=== PATIENT | female | born 1990 | race Caucasian/White ===

== ENCOUNTER → 2019-02-18 | Outpatient (CLI) | payer OTHER ==
[~2019-02-18] MED LIST: Zofran Odt8 MG SL
== END | disposition home or self-care (01) ==
LOC: LAB SHORT 18:40 → LAB 18:40
PROVIDERS: Nurse Practitioner
DX: Z01.419 Encounter for gynecological examination (general) (routine) without abnormal findings (principal)
CPT/HCPCS: G0145

== ENCOUNTER → 2020-07-19 | Outpatient (CLI) | payer OTHER ==
[2020-07-19 15:03] LABS: Source, Urine Clean Catch
[2020-07-19 17:27] LABS: Appearance, Urine Clear (Clear); Bilirubin, Urine Neg (Neg); Blood, Urine Neg (Neg); Color, Urine Yellow (P-Yellow); Glucose Qualitative, Urine Neg (Neg); Ketones, Urine Neg (Neg); Leukocyte Esterase, Urine Neg (Neg); Nitrite, Urine Neg (Neg); Protein, Urine Neg (Neg); Urobilinogen, Urine NORM (Normal)
[2020-07-19 17:32] LABS: Specific Gravity, Urine 1.005 (1.003-1.022)
== END | disposition home or self-care (01) ==
LOC: LAB 11:02 → LAB SHORT 11:02
PROVIDERS: Obstetrics & Gynecology
DX: N39.0 Urinary tract infection, site not specified (principal)
CPT/HCPCS: 81003

== ENCOUNTER → 2020-09-13 | Outpatient (CLI) | payer OTHER ==
[~2020-09-13] MED LIST changes: +OMEP20ER PO; +PRENATAL TABLE1 EAC2 PO; +Percocet 5-3251 EACH PO
[2020-09-13 16:30] LABS: Source, Urine Clean Catch
[2020-09-13 18:06] LABS: Appearance, Urine Hazy (Clear); Bilirubin, Urine Neg (Neg); Blood, Urine Neg (Neg); Color, Urine Yellow (P-Yellow); Glucose Qualitative, Urine Neg (Neg); Ketones, Urine Neg (Neg); Leukocyte Esterase, Urine 1+ (Neg); Nitrite, Urine Pos (Neg); Protein, Urine Neg (Neg); Specific Gravity, Urine 1.025 (1.003-1.022); Urobilinogen, Urine NORM (Normal); pH, Urine 6.5 (5.0-8.0)
[2020-09-13 18:36] LABS: Bacteria Many /hpf; Red Blood Cells, Urine 0-2 /hpf (0-2); Squamous Epithelial Cells Few /hpf (Few)
== END | disposition home or self-care (01) ==
LOC: LAB SHORT 16:27 → LAB 16:27
PROVIDERS: Obstetrics & Gynecology
DX: Z34.82 Encounter for supervision of other normal pregnancy, second trimester (principal)
CPT/HCPCS: 81001; 87077; 87086; 87186

== ENCOUNTER 2021-01-19 08:55 | Inpatient (IN) | payer OTHER ==
[~2021-01-19] VITALS: Ht 157.5 cm; Wt 78.6 kg
[~2021-01-19 08:55] MED LIST changes: -OMEP20ER PO; -PRENATAL TABLE1 EAC2 PO; -Percocet 5-3251 EACH PO
[2021-01-19 10:04] LABS: Source, Urine Clean Catch
[2021-01-19 10:09] LABS: Appearance, Urine Clear (Clear); Bilirubin, Urine Neg (Neg); Blood, Urine Neg (Neg); Color, Urine Yellow (P-Yellow); Glucose Qualitative, Urine Neg (Neg); Ketones, Urine Neg (Neg); Leukocyte Esterase, Urine 1+ (Neg); Nitrite, Urine Neg (Neg); Protein, Urine Neg (Neg); Urobilinogen, Urine NORM (Normal)
[2021-01-19 10:17] LABS: BASOPHILS ABSOLUTE AUTO 0.02 K/mm3 (0.00-0.23); BASOPHILS PERCENT AUTO 0 % (0-2); EOSINOPHILS PERCENT AUTO 0 % (0-6); Hematocrit 35.8 % (33.0-51.0); Hemoglobin 11.7 g/dL (11.5-16.0); IMMATURE GRAN ABSOLUTE AUTO 0.05 K/mm3 (0.00-0.10); IMMATURE GRAN PERCENT AUTO 0 % (0-1); LYMPHOCYTES ABSOLUTE AUTO 1.17 K/mm3 (0.84-5.20); LYMPHOCYTES PERCENT AUTO 8 % (21-46); MONOCYTES ABSOLUTE AUTO 0.89 K/mm3 (0.16-1.47); MONOCYTES PERCENT AUTO 6 % (4-13); Mean Corpuscular HGB 28.7 pg (26.0-34.0); Mean Corpuscular HGB Conc 32.7 g/dL (31.5-36.5); Mean Corpuscular Volume 88 fL (80-100); Mean Platelet Volume 10.8 fL (9.1-12.4); NEUTROPHILS ABSOLUTE AUTO 12.07 K/mm3 (1.96-9.15); NEUTROPHILS PERCENT AUTO 85 % (41-73); Platelet Count 225 K/mm3 (150-400); RDW Coefficient Variation 13.9 % (11.7-14.2); RDW Standard Deviation 44.8 fL (35.1-46.3); Red Blood Cell Count 4.07 M/mm3 (3.80-5.20)
[2021-01-19 10:21] LABS: Bacteria Rare /hpf; Red Blood Cells, Urine 0-2 /hpf (0-2); Squamous Epithelial Cells Few /hpf (Few)
[2021-01-19 10:28] LABS: Alanine Aminotransfer (ALT/SGP 15 U/L (12-78); Albumin, Blood 2.5 g/dL (3.4-5.0); Albumin/Globulin Ratio 0.5 (0.8-1.8); Alk Phos 170 U/L (50-136); Anion Gap 5 mmol/L (6-16); Aspartate Aminotrans (AST/SGOT 16 U/L (12-37); Bilirubin, Total 0.8 mg/dL (0.1-1.0); Blood Urea Nitrogen 5 mg/dL (8-24); Bun/Creatinine Ratio 7.7 (12.0-20.0); CO2, Blood 25 mmol/L (21-32); Calcium, Blood 9.4 mg/dL (8.5-10.1); Chloride, Blood 104 mmol/L (98-108); Creatinine, Blood 0.65 mg/dL (0.40-1.00); Globulin, Blood 5.1 g/dL (2.2-4.0); Glomerular Filtration Rate >60 (60-); Glucose, Blood 76 mg/dL (70-99); Sodium, Blood 134 mmol/L (136-145); Total Protein, Blood 7.6 g/dL (6.4-8.2)
[2021-01-19] MEDS ORDERED: PRENATAL TABLE1 EAC2 PO (13:26)
[2021-01-19] MEDS ORDERED: OMEP20ER PO (13:26)
[2021-01-19 13:37] LABS: Influenza A, PCR NEGATIVE (NEGATIVE); Influenza B, PCR NEGATIVE (NEGATIVE); Resp Syncytial Virus, PCR NEGATIVE (NEGATIVE); SARS-Cov-2 (COVID-19) PCR, MMC NEGATIVE (NEGATIVE)
--- NOTE | 2021-01-19 15:18 | NUR ---
CAME IN C/O RIGHT SIDE ABDOMINAL PAIN AND RIGHT FLANK PAIN. STATES THE PAIN HAS BEEN OFF AND ON X 2 WEEKS WORSE THIS MORNING. TEMP 99 ON ARRIVAL. FHE 170 WITH MINIMAL VARIABILITY AND TACHYCARDIA. NO IMPROVEMENT WITH IVF OR POSITION CHANGE. 1130 REPORT TO TO Mariella OLVERA RNC
[2021-01-19 22:00] LABS: BASOPHILS ABSOLUTE AUTO 0.02 K/mm3 (0.00-0.23); BASOPHILS PERCENT AUTO 0 % (0-2); EOSINOPHILS PERCENT AUTO 0 % (0-6); Hematocrit 29.4 % (33.0-51.0); Hemoglobin 9.8 g/dL (11.5-16.0); IMMATURE GRAN ABSOLUTE AUTO 0.07 K/mm3 (0.00-0.10); IMMATURE GRAN PERCENT AUTO 1 % (0-1); LYMPHOCYTES ABSOLUTE AUTO 0.73 K/mm3 (0.84-5.20); LYMPHOCYTES PERCENT AUTO 5 % (21-46); MONOCYTES ABSOLUTE AUTO 0.89 K/mm3 (0.16-1.47); MONOCYTES PERCENT AUTO 6 % (4-13); Mean Corpuscular HGB 29.5 pg (26.0-34.0); Mean Corpuscular HGB Conc 33.3 g/dL (31.5-36.5); Mean Corpuscular Volume 89 fL (80-100); Mean Platelet Volume 10.4 fL (9.1-12.4); NEUTROPHILS ABSOLUTE AUTO 13.04 K/mm3 (1.96-9.15); NEUTROPHILS PERCENT AUTO 89 % (41-73); Platelet Count 194 K/mm3 (150-400); RDW Coefficient Variation 14.1 % (11.7-14.2); RDW Standard Deviation 45.6 fL (35.1-46.3); Red Blood Cell Count 3.32 M/mm3 (3.80-5.20); White Blood Cell Count 14.75 K/mm3 (4.00-11.30)
[2021-01-20 02:13] LABS: PCO2 Cord - Venous 43.9 mmHg (40-50); PO2 Cord - Venous 28.1 mmHg (28-32); pH Umbilical Cord - Venous 7.37 (7.26-7.35)
--- NOTE | 2021-01-20 02:47 | NUR ---
01/20/21 0247 Zelda Car 0200 VIABLE BABY BOY. CORD BLOO GIVEN TO CHANTE.LT1 UMBILICAL CORD SEGMENT GIVEN TO RCD.CMB.
[2021-01-20 03:26] LABS: Hematocrit 23.2 % (33.0-51.0); Hemoglobin 7.6 g/dL (11.5-16.0); Mean Corpuscular HGB 29.3 pg (26.0-34.0); Mean Corpuscular HGB Conc 32.8 g/dL (31.5-36.5); Mean Corpuscular Volume 90 fL (80-100); Mean Platelet Volume 10.6 fL (9.1-12.4); Platelet Count 207 K/mm3 (150-400); RDW Coefficient Variation 14.2 % (11.7-14.2); RDW Standard Deviation 46.5 fL (35.1-46.3); Red Blood Cell Count 2.59 M/mm3 (3.80-5.20); White Blood Cell Count 16.57 K/mm3 (4.00-11.30)
--- NOTE | 2021-01-20 03:29 | NUR ---
PT ARRIVED TO PACU AFTER HAVING PCS UNDER GENRAL ANTHESIA AFTER FAILED SPINAL X2, HUBBARD DRAINING CLEAR YELLOW URINE,OPERATIONS PLANNER REPORTS BLADDER IRRAGATION WITH 250CC OF SALINE. PT REPORTING PAIN 8/10. PT ON RA LUNGS CLEAR, EKG RYTHM IS SINUS TACH. EBL 1500 PER ANTHESIA AND PITOCIN INFUSING AT PP RATE.
[2021-01-20 03:45] LABS: BAND PERCENT MAN 11 % (0-8); BASOPHILS PERCENT MAN 0 % (0-2); EOSINOPHILS PERCENT MAN 0 % (0-6); LYMPHOCYTES ABSOLUTE MAN 0.49 K/mm3 (0.84-5.20); LYMPHOCYTES PERCENT MAN 3 % (21-46); MONOCYTES ABSOLUTE MAN 0.82 K/mm3 (0.16-1.47); MONOCYTES PERCENT MAN 5 % (4-13); NEUTROPHILS ABSOLUTE MAN 15.24 K/mm3 (1.96-9.15); SEG NEUTROPHILS PERCENT MAN 81 % (41-73); TOTAL CELLS COUNTED 100
--- NOTE | 2021-01-20 08:20 | NUR ---
OBESTRIC HEMMORHAGE PROTOCOL REASON FOR "NOS" NO FOR OBAINING ORDER FOR OB HEMMORHAGE PROTOCOL DUE TO NOT RECIEVING AN ORDER FROM OB PROVIDER. NO FOR INCREASING PITOCIN TO 999ML/HR DUE TO PROVIDER DECLING PITOCIN BE RAN FASTER THAN 500CC/HR. NO FOR CYTOTEC 800MG PER RECTUM DUE TO NO SIGNIFICANT BLOOD LOSS IN PACU OR ROOM. NO FOR VS Q5 MIN DUE TO MONITOR ONLY BEING SET FOR Q 15 MIN BP READINGS (BUT HAD CONT PULSE OXIMETRY READINGS AND EKG TRACING). NO FOR WEIGHING ALL BLOOD SATURATED MATERIALS DUE TO NO SIGNIFICANT LOSS OF BLOOD IN PACU OR ROOM.
--- NOTE | 2021-01-20 08:34 | NUR ---
PROVIDER CALLED AND NOTIFIED OF PT'S INCREASING TACHYCARDIA, BLOOD CULTURE RESULTS OF GRAM NEGATIVE BACILLI, FEVER OF 101.0., HYPOTENSION AND PT'S INCREASING PAIN LEVEL. NEW ORDERS TO ADD LACTIC ACID TO 0930 LAB DRAW. ALSO T/O CONFIRMATION TO GIVE 2G AMPICILLIN NOW. DR. MALONE TO CONTACT DR. HARRIS AND HOSPITALIST. NO OTHER NEW ORDERS AT THIS TIME.
--- NOTE | 2021-01-20 08:55 | NUR ---
LAB CALLED AND REQUESTED ALL LABS TO BE DRAWN STAT NOW.
[2021-01-20 09:20] LABS: Hematocrit 18.5 % (33.0-51.0); Hemoglobin 6.1 g/dL (11.5-16.0); Mean Corpuscular HGB 29.8 pg (26.0-34.0); Mean Corpuscular Volume 90 fL (80-100); Mean Platelet Volume 10.8 fL (9.1-12.4); Platelet Count 179 K/mm3 (150-400); RDW Coefficient Variation 14.3 % (11.7-14.2); RDW Standard Deviation 47.7 fL (35.1-46.3); Red Blood Cell Count 2.05 M/mm3 (3.80-5.20); White Blood Cell Count 13.05 K/mm3 (4.00-11.30)
[2021-01-20 09:44] LABS: Alanine Aminotransfer (ALT/SGP 9 U/L (12-78); Albumin, Blood 1.4 g/dL (3.4-5.0); Albumin/Globulin Ratio 0.5 (0.8-1.8); Alk Phos 84 U/L (50-136); Anion Gap 5 mmol/L (6-16); Aspartate Aminotrans (AST/SGOT 15 U/L (12-37); Bilirubin, Total 0.4 mg/dL (0.1-1.0); Blood Urea Nitrogen 5 mg/dL (8-24); Bun/Creatinine Ratio 7.3 (12.0-20.0); CO2, Blood 24 mmol/L (21-32); Chloride, Blood 109 mmol/L (98-108); Creatinine, Blood 0.69 mg/dL (0.40-1.00); Globulin, Blood 2.9 g/dL (2.2-4.0); Glomerular Filtration Rate >60 (60-); Glucose, Blood 98 mg/dL (70-99); Potassium, Blood 3.6 mmol/L (3.5-5.5); Sodium, Blood 138 mmol/L (136-145)
[2021-01-20 09:45] LABS: Calcium, Blood 7.4 mg/dL (8.5-10.1); Total Protein, Blood 4.3 g/dL (6.4-8.2)
[2021-01-20 09:46] LABS: BAND PERCENT MAN 7 % (0-8); BASOPHILS PERCENT MAN 0 % (0-2); EOSINOPHILS PERCENT MAN 0 % (0-6); LYMPHOCYTES ABSOLUTE MAN 1.69 K/mm3 (0.84-5.20); LYMPHOCYTES PERCENT MAN 13 % (21-46); MONOCYTES ABSOLUTE MAN 0.52 K/mm3 (0.16-1.47); MONOCYTES PERCENT MAN 4 % (4-13); NEUTROPHILS ABSOLUTE MAN 10.83 K/mm3 (1.96-9.15); SEG NEUTROPHILS PERCENT MAN 76 % (41-73); TOTAL CELLS COUNTED 100
--- NOTE | 2021-01-20 09:49 | NUR ---
VERBAL ORDER TO CHANGE LR RATE TO 125ML/HR.
[2021-01-20 09:53] LABS: International Normalized Ratio 1.1; Prothrombin Time Results 11.7 Sec (9.7-11.5)
--- NOTE | 2021-01-20 12:05 | NUR ---
BLOOD TRANSFUSION STARTED AND VERIFIED WITH ESME HYDE AND PIOTR GUTIÉRREZ. UPDATED PRECIPITATOR SETTINGS CHANGED PER EMAR AND VERIFIED WITH ESME KNAPP.
[2021-01-20 14:50] LABS: Hematocrit 21.3 % (33.0-51.0); Mean Corpuscular HGB Conc 32.9 g/dL (31.5-36.5); Mean Corpuscular Volume 88 fL (80-100); Mean Platelet Volume 10.8 fL (9.1-12.4); Platelet Count 187 K/mm3 (150-400); RDW Coefficient Variation 14.4 % (11.7-14.2); RDW Standard Deviation 46.8 fL (35.1-46.3); Red Blood Cell Count 2.41 M/mm3 (3.80-5.20); White Blood Cell Count 13.26 K/mm3 (4.00-11.30)
--- NOTE | 2021-01-20 15:15 | NUR ---
DR. HARRIS CALLED AND UPDATED ON NEW LAB RESULTS. T/O FOR 1 MORE UNIT OF PRBC'S TO BE GIVEN. TO PLACE ORDER. NOTTIFIED PT'S PO WATER INTAKE IS VERY HIGH. T/O FOR PT TO STOP 125ML/HR LR FLUIDS. FLUIDS TURNED DOWN TO TKO 60ML/HR FOR [facility] DIRECTOR PUMP ONLY. WILL CONTINUE TO MONITOR.
--- NOTE | 2021-01-21 02:38 | NUR ---
PT CALLED RN IN TO ROOM TO HELP HER PUT HER PAS STOCKINGS BACK ON AFTER SHE GOT HERSELF UP TO STAND AT THE BEDSIDE.
[2021-01-21 05:29] LABS: Hematocrit 24.3 % (33.0-51.0); Mean Corpuscular HGB 28.9 pg (26.0-34.0); Mean Corpuscular HGB Conc 32.9 g/dL (31.5-36.5); Mean Corpuscular Volume 88 fL (80-100); Mean Platelet Volume 10.4 fL (9.1-12.4); Platelet Count 195 K/mm3 (150-400); RDW Coefficient Variation 15.6 % (11.7-14.2); RDW Standard Deviation 50.1 fL (35.1-46.3); Red Blood Cell Count 2.77 M/mm3 (3.80-5.20); White Blood Cell Count 11.25 K/mm3 (4.00-11.30)
--- NOTE | 2021-01-21 11:00 | NUR ---
01/21/21 0945 UP TO SHOWER, TOLERATED VERY WELL. DRESSING REMOVED, INCISION CLEAN WITH STERISTRIPS INTACT
--- NOTE | 2021-01-22 14:45 | NUR ---
PT D/C HOME WITH NB, BANDS MATCHED, D/C INSTRUCTIONS REVIEWED AND SINGED, PT HAD NO FURTHUR QUESTIONS. HARD SCRIPT SENT HOME WITH PT FOR OXYCODONE. INFORMATION REVIEWED WITH PT ON PP DEPRESSION, ANXIETY AND S&SOF INFECTION. PT INSTRUCTED TO FOLLOW UP AT [facility] ON 01/25/21 AND TO CALL AND SCHDULE FOLLOW UP APPPOINTMENTS WITH PROVIDER FOR PP CARE.
[2021-01-22] MEDS ORDERED: Percocet 5-3251 EACH PO (14:46)
== END 2021-01-22 15:05 | disposition home or self-care (01) | DRG 786 ==
LOC: OBS 08:55 → BC 08:55 → OBS 12:09 → BC 12:09
PROVIDERS: Obstetrics & Gynecology; ADMIT Obstetrics & Gynecology
PROC: 10907ZC Drainage of Amniotic Fluid, Therapeutic from Products of Conception, Via Natural or Artificial Opening (ICD-10-PCS; 2021-01-19)
PROC: 0U7C7ZZ Dilation of Cervix, Via Natural or Artificial Opening (ICD-10-PCS; 2021-01-19)
PROC: 10907ZC Drainage of Amniotic Fluid, Therapeutic from Products of Conception, Via Natural or Artificial Opening (ICD-10-PCS; 2021-01-19)
PROC: 30233N1 Transfusion of Nonautologous Red Blood Cells into Peripheral Vein, Percutaneous Approach (ICD-10-PCS; 2021-01-20)
PROC: 3E0234Z Introduction of Serum, Toxoid and Vaccine into Muscle, Percutaneous Approach (ICD-10-PCS; 2021-01-20)
PROC: 00HU33Z Insertion of Infusion Device into Spinal Canal, Percutaneous Approach (ICD-10-PCS; 2021-01-20)
PROC: 3E0R3BZ Introduction of Anesthetic Agent into Spinal Canal, Percutaneous Approach (ICD-10-PCS; 2021-01-20)
PROC: 10D00Z1 Extraction of Products of Conception, Low, Open Approach (ICD-10-PCS; principal; 2021-01-20 01:00)
DX: O75.3 Other infection during labor (principal); A41.51 Sepsis due to Escherichia coli [E. coli]; D62 Acute posthemorrhagic anemia; Z20.822 Contact with and (suspected) exposure to COVID-19; Z3A.38 38 weeks gestation of pregnancy; Z37.0 Single live birth; O76 Abnormality in fetal heart rate and rhythm complicating labor and delivery; O26.893 Other specified pregnancy related conditions, third trimester; Z67.41 Type O blood, Rh negative
CPT/HCPCS: 0241U; 36415; 36430; 51702; 59025; 59200; 76705; 76857; 80053; 81001; 82803; 83605; 85025; 85027; 85384; 85460; 85610; 85730; 86850; 86900; 86901; 86923; 87040; 87070; 87075; 87077; 87086; 87186; 87205; 88307; 96372; A9270; A9270-GY; C9113; J0290; J0694; J0696; J1170; J1580; J1885; J2001; J2370; J2405; J2590; J2704; J2710; J2765; J2791; J3010; J7120; P9016